=== PATIENT | female | born 1945 | race Caucasian/White ===

== ENCOUNTER → 2016-04-21 | Outpatient (CLI) | payer BC ==
[~2016-04-21] MED LIST: CALC-422 PO; CALCIUM MAGNESIUM PO; METO1TAB66 PO; MULT-190 PO; MULT-614 PO; PANT40TA PO; PROBCAP PO; PSYL55.43 PO; TAMO20TA47 PO; VITA400C15 PO
[2016-04-21 13:51] VITALS: BP 157/73; PULSE 64; TEMP 36.6; O2SAT 96
--- NOTE | 2016-04-21 16:13 | Radiation Oncology Follow-Up ---
Radiation Oncology Follow-Up Date of Visit Apr 21, 2016. Reason For Visit Ms. Whitehead is being seen today as part of her regular scheduled follow-up visit. Radiation Completion Date APB 08/23/15 Endometrial HDRs x 3 - 07/20/12 History of Present Illness Ms Whitehead is doing well in regards to the prior history of endometrial carcinoma. She saw Dr. Ziegler in June. She's had no vaginal discharge or irritation. No change in urination. No change in bowel habits. Follow-up examination and Pap She had a screening mammogram 04/15/2015. She was found to have a mass at the 2 o'clock position of left breast and ultrasound guided biopsy was recommended. There was nodular asymmetry in the right breast with no sonographic Corlett. She then underwent the ultrasound guided biopsy. The first 2015 which revealed DCIS. This was extensive with sclerosing adenosis. Specimen 1 [id number]. She then was sent for an MRI of the breasts. This showed enhancing 7 mm mass in the left upper outer quadrant, consistent with biopsy proven malignancy. There was an irregular enhancing 5 mm mass in the right breast at 12 o'clock position posteriorly. The mass is intermediate for malignancy and second look ultrasound was recommended for further evaluation. If an abnormality is seen and ultrasound guided core needle biopsy was recommended. On 06/12/2015 she had the second look ultrasound this was given BI-RADS 4 suspicious. On 06/26/2015 she had an MRI guided biopsy of the right breast which showed atypical ductal hyperplasia. Specimen 1 [id number]. She was referred to Dr. Bryant and underwent a right breast needle localization biopsy and left breast lumpectomy and sentinel lymph node biopsy on 07/15/2015. The specimens revealed atypical ductal hyperplasia on the right. The left breast showed DCIS. The lesion was 0.8 cm in greatest dimension. There was comedo necrosis. Margins were negative with the nearest margin 0.2 cm posterior margin on main specimen. Estrogen receptor was positive and progesterone receptor was positive. Her AJCC pathologic staging was pTis pN0. She was referred to our office to discuss radiation therapy She underwent a CT simulation was found to be good candidate for accelerated partial breast treatment. The patient returns for one-month follow-up visit on 08/23/2015. She's been doing well over the past month. She has noticed no changes to her breasts. She is noted no masses or tenderness and no change of the axilla. She's had no swelling of her arm. She is seeing Dr. Acosta and was prescribed tamoxifen. She did develop hot flashes. She did see him last week regards to the hot flashes and he recommended that she take vitamin E 400 international units daily. She is picked up the medication and will be starting to take this regularly. She stated that the bottle recommended that 400 international units be taken twice daily. I discussed with her that she should follow the recommendation of Dr. Acosta. Interim History This patient was last seen on 10/02/2015. Since that time she has continued on her tamoxifen therapy daily. She has noted some hair thinning and decrease in vision with worsening of her cataracts. She has spoken to Dr. Acosta about this when she saw him 2 weeks ago. The decision was made to continue with the tamoxifen therapy. Patient underwent a unilateral right digital diagnostic mammogram [facility] with CAD and targeted right breast ultrasound on . This showed loosely grouped punctate microcalcifications in the right upper outer quadrant that were present and unchanged since 2011. The plan is to continue close follow-up of the right breast in continued follow-up of the treated left breast. Patient continues to be followed by Dr. 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 She was last seen by him on 01/11/2016. She is scheduled to see Dr. Shah on 07/23/2016. The patient notes no complaint of left breast tenderness or soreness or chest wall tenderness or soreness. She has no other complaints related to her course of radiation. Allergies Coded Allergies: Penicillins (Unverified Allergy, Unknown, RASH AND ITCHING, 07/15/15) Home Medications Scheduled Calcium Carbonate-Vitamin D (Calcium/Vitamin D3), 1 TAB PO QAM Metoprolol Succinate (Toprol Xl), 50 MG PO QAM Multiple Vitamins W/ Minerals (Centrum Silver Ultra Wome), 1 TAB PO QAM Ocuvite Preservision (Ocuvite Preservision), 1 TAB PO QAM Pantoprazole Sodium (Protonix), 40 MG PO DAILY Probiotic Product (diaDexus), 1 CAP PO QAM Psyllium (Metamucil Powder), 1 PACK PO DAILY Tamoxifen (Nolvadex), 20 MG PO DAILY Tocopheryl Acet,Dl-Alpha (Vitamin E), 400 INTER.UNIT PO DAILY [calcium magnesium], 1 TAB PO DAILY Review of Systems Gastrointestinal: Symptoms: WNL GI Comments: Chronic mild episodes of intestinal cramping and loose BMs; Oral: Symptoms: No Problems Respiratory: Symptoms: WNL Urinary: Symptoms: WNL Skin: Symptoms: No Problems Breast: Right Upper Arm Measurement: 26.0 Right Mid Arm Measurement: 23.5 Right Wrist Measurement: 15.0 Left Upper Arm Measurement: 27.0 Left Mid Arm Measurement: 23.0 Left Wrist Measurement: 14.5 Arm Dominence: Right Physical Exam Vital Signs Date Time Temp Pulse Resp B/P Pulse Ox O2 Delivery O2 Flow Rate FiO2 04/21/16 13:51 36.6 64 12 157/73 96 Fatigue: None General Appearance: WD/WN, no apparent distress Eyes: normal inspection ENT: normal ENT inspection, pharynx normal Neck: supple, no adenopathy Respiratory/Chest: chest non-tender, lungs clear, normal breath sounds Breast: Examination of the treated left breast reveals no skin thickening. There is no persistent pigmentation change. There are no left breast masses, induration or thickening. There is no left axillary adenopathy. The untreated right breast remains unremarkable with no skin changes, right breast masses or axillary adenopathy. There is a well-healed incision in the upper central portion of the right breast. Cardiovascular: regular rate, rhythm, no murmur Abdomen: non tender, soft, no organomegaly Extremities: normal range of motion, + pertinent finding (there is no evidence of arm edema to measurement.) Neurologic/Psychiatric: senior analysis specialist II-XII nml as tested, no motor/sensory deficits, normal mood/affect, oriented x 3 Skin: normal color, warm/dry Lymphatic: no adenopathy Laboratory Studies UNILATERAL RIGHT DIGITAL DIAGNOSTIC MAMMOGRAM TOMOSYNTHESIS WITH CAD AND TARGETED RIGHT ULTRASOUND: 01/17/2016 CLINICAL HISTORY: 70-year-old woman with a personal history of left breast cancer status post lumpectomy and radiation, as well as right breast atypia diagnosed at an MRI guided biopsy performed on 06/26/2015. She is status post surgical excisional biopsy in the right breast as well. A bilateral breast MRI was performed to ensure stability post MRI guided biopsy given that the finding of atypia was mammographically and sonographically occult. This follow-up MRI demonstrates a 3.5 mm enhancing focus/mass in the 12:00 anterior/subareolar right breast that appears more prominent compared to the prior MRI. The patient was called back for additional right mammography and targeted ultrasound to evaluate for this 3.5 mm focus/mass. Comparison is made to exams dated: 06/26/2015 mammogram, 06/12/2015 ultrasound, mammogram, and 04/03/2015 mammogram - [facility]. FINDINGS: Right CC and MLO to the digital and tomosynthesis images, spot magnification right CC and ML views were obtained. The tissue of the right breast is heterogeneously dense, which may obscure small masses. Current study was also evaluated with a Computer Aided Detection (CAD) system. There is expected architectural distortion and a surgical clip in the 12:00 middle to posterior right breast, at the site of prior surgical excisional biopsy for the atypia found at MRI guided biopsy. There is no obvious new mass or unexpected architectural distortion in the right breast. However, clustered microcalcifications were seen in the right upper outer quadrant for which additional spot magnification views were obtained. With spot magnification, there are loosely grouped punctate microcalcifications extending over 2.8 x 1.7 cm in the right upper outer quadrant. When comparing to prior available for field mammograms, these appear to have been present dating back to at least 2011 , but given the slight increased conspicuity, short interval follow-up spot magnification views are recommended to ensure stability in 6 months. Real-time high-resolution ultrasound was performed in the 12:00, retroareolar and 6:00 axes of the right breast. Mild duct ectasia is seen in the periareolar and retroareolar breast. However, no discrete solid or cystic 3.5 mm mass is seen to correlate with the MRI finding. IMPRESSION: ACR-BI-RADS CATEGORY 3: PROBABLY BENIGN, TARGETED ULTRASOUND ACR-BI- RADS CATEGORY 3: PROBABLY BENIGN 1. There are loosely grouped punctate microcalcifications in the right upper outer quadrant that were likely present and unchanged dating back to 2011. Although they are probably benign, given the slight increased conspicuity, a short interval follow-up spot magnification views are recommended in 6 months. 2. Mammograms including tomosynthesis images and targeted ultrasound failed to demonstrate a correlate for the 3.5 mm enhancing focus/mass seen on recent bilateral breast MRI that appeared slightly more prominent compared to the prior breast MRI, although the differences are less than a millimeter and this may be secondary to technique and image slice thickness. Given the circumscribed borders this may be benign. However, a short interval follow-up breast MRI is recommended to ensure stability in 6 months, given that this focus is mammogram and ultrasound occult. These results and recommendations were discussed with the patient at the time of the exam. She tentatively scheduled the follow-up appointments prior to leaving our department. Approximately 10% of breast cancers are not detected with mammography. A negative mammographic report should not delay biopsy if a clinically suggestive mass is present. Adrienne Beltran M.D. ay/:01/17/2016 14:41:53 Assessment & Plan Ms. Whitehead continues to do well following the completion of her accelerated partial breast irradiation to the left breast cavity. Prior mammogram from December 2015 was unremarkable. She is scheduled for a bilateral mammogram on . She is scheduled for an MRI of the right breast on 07/20/2016. Patient continues to be followed by Dr. Ziegler in [place] and Dr. Shah, thermoforming machine operator at [facility] on a semiannual basis. She continues to do well following HDR brachytherapy to the vaginal vault. She will continue to be followed by Dr. Acosta for her ongoing tamoxifen therapy. We will continue to follow her and will see her in one year's time. Total Time In Follow-Up I spent 15 minutes in discussion and examination of the of the patient, 10 minutes reviewing her chart and scans and in preparation of this document. Copy To Melo Acosta D.O.; Tia Shah M.D.(LEAD NITRATE PROCESSOR/OB); Campos Ziegler M.D.; Venu Perry M.D.
== END | disposition home or self-care (01) ==
LOC: C.ONC 13:26
PROVIDERS: ATTEND Radiology Radiation Oncology
DX: Z08 Encounter for follow-up examination after completed treatment for malignant neoplasm (principal); Z92.3 Personal history of irradiation; Z85.42 Personal history of malignant neoplasm of other parts of uterus

== ENCOUNTER → 2016-07-20 | Outpatient (CLI) | payer BC ==
[~2016-07-20] MED LIST changes: +METO-452 PO; -METO1TAB66 PO; -TAMO20TA47 PO; +TAMO20TA9 PO
--- NOTE | 2016-07-22 14:36 | MAMMOGRAPHY REPORT ---
BILATERAL DIGITAL DIAGNOSTIC MAMMOGRAM TOMOSYNTHESIS WITH CAD AND TARGETED RIGHT ULTRASOUND: 07/21/19 CLINICAL HISTORY: 71-year-old woman with history of left breast cancer and right breast atypia prese nts for mammographic follow-up in both breasts as well as targeted second look ultrasound for an MRI finding of an enhancing irregular 4 mm focus in the 12:00 anterior/subareolar right breast. TECHNIQUE: Bilateral CC and MLO 2-D digital and tomosynthesis, spot magnification CC and ML views o f each breast were obtained. Current study was also evaluated with a Computer Aided Detection (CAD) system. COMPARISON: Comparison is made to exams dated: 07/20/2016 breast MRI, 01/17/2016 ultrasound, 016 mammogram, 01/06/2016 breast MRI, 12/16/2015 ultrasound, and 07/15/[address] [facility]. BREAST COMPOSITION: The tissue of both breasts is heterogeneously dense, which may obscure small ma sses. FINDINGS: There is expected architectural distortion with associated surgical clips in the upper out er posterior aspect of the right breast. Grouped punctate microcalcifications are again seen in the upper outer middle one third of the right breast. When comparing to the spot magnification views w as performed on 01/17/2016, the microcalcifications do not appear significantly increased, and were likely present dating back to 2011, therefore likely benign. No obvious mass is identified to corre late with the 4.1 mm irregular enhancing focus in the 12:00 anterior/subareolar right breast on rece nt MRI. No other obvious mass, unexpected architectural distortion or new calcifications are seen i n the right breast. There is expected architectural distortion with associated surgical clips in the upper outer posteri or left breast. There are stable punctate microcalcifications in the left breast. No new suspiciou s mass, focal area of architectural distortion or new suspicious microcalcifications are identified. Targeted ultrasound was performed in the right breast with particular attention to the 12:00, retroa reolar and 6:00 axes to evaluate for the 4.1 mm irregular enhancing focus seen on recent MRI, that i s increased in prominence compared to prior MRIs. Aside from mild duct ectasia in the subareolar ri ght breast, no discrete solid or cystic mass is seen. Therefore, MRI guided biopsy is recommended. IMPRESSION: ACR BI-RADS CATEGORY 4B: INTERMEDIATE SUSPICION FOR MALIGNANCY, TARGETED ULTRASOUND ACR BI-RADS CATEGORY 4B: INTERMEDIATE SUSPICION FOR MALIGNANCY 1. Right mammogram and targeted ultrasound failed to demonstrate a correlate for the suspicious irr egular enhancing 4.1 mm focus in the 12:00 anterior/subareolar breast seen on recent MRI, that is in creasingly prominent comparing to prior MRIs. This remains suspicious and definitive characterizati on with a right breast MRI guided biopsy is recommended. 2. Overall stable mammographic appearance of the breasts including grouped punctate microcalcificat ions in the right upper outer quadrant. Pending pathology results from the MRI guided biopsy, would recommend another six-month follow-up of the right breast microcalcifications to ensure longer stab ility. These results and recommendations were discussed with the patient at the time of the exam. She will call to schedule her MRI guided biopsy after undergoing cataract surgery, which is scheduled for e near future. Approximately 10% of breast cancers are not detected with mammography. A negative mammographic repor t should not delay biopsy if a clinically suggestive mass is present. Adrienne Beltran M.D. ay/:07/21/2016 22:05:47 Radar Systems Engineer: Jaja Pearson RT(R)(M), [facility] letter sent: Abnormal 4/5 BI-RADS Code: ACR BI-RADS Category 4B: Intermediate Suspicion For Malignancy Ultrasound BI-RADS: AC R BI-RADS Category 4B: Intermediate Suspicion For Malignancy
== END | disposition home or self-care (01) ==
LOC: C.MAMM 09:33
PROVIDERS: ATTEND Physician Assistant Medical
DX: Z09 Encounter for follow-up examination after completed treatment for conditions other than malignant neoplasm (principal); R92.8 Other abnormal and inconclusive findings on diagnostic imaging of breast; R92.0 Mammographic microcalcification found on diagnostic imaging of breast

== ENCOUNTER → 2016-07-20 | Outpatient (CLI) | payer BC ==
[2016-07-16 10:40] LABS: BLOOD UREA NITROGEN 14 mg/dl (7-18); CREATININE 0.89 mg/dl (0.60-1.20)
[~2016-07-20] MED LIST changes: +GADAVIST IV PRN
--- NOTE | 2016-07-22 14:36 | MAMMOGRAPHY REPORT ---
BREAST MRI OF BOTH BREASTS : 07/20/2016 CLINICAL HISTORY: 71-year-old woman with a history of left breast cancer right breast atypia. She i s status post lumpectomy and radiation therapy on the left. She presents for MRI to follow-up enhan cing foci within the right breast and also assess both breasts for continued surveillance. COMPARISON: Comparison is made to exams dated: 01/17/2016 ultrasound, 01/17/2016 mammogram, 016 breast MRI, 12/16/2015 ultrasound, 12/16/2015 mammogram, and 07/15/2015 localization - [facility]. TECHNIQUE: Using a 1.5 Maritza magnet and dedicated breast coil, multisequence axial images were obtai ruddy through the breasts. After uneventful IV administration of 6.5 mL of Gadavist, dynamic multipha se contrast-enhanced axial images, and sagittal postcontrast were obtained. Temporal subtraction ax ial images and 3-D MIP images are provided. Everything was then reviewed on a 3-D workstation, [employer]. FINDINGS: Right breast: There is no significant background parenchymal enhancement of the right breast. There is expected architectural distortion in the 6:00 anterior/retroareolar right breast, at the site of prior MRI guided biopsy and a surgical excisional biopsy in which atypia identified. Again seen is an enhancing focus in the 12:00 anterior/subareolar right breast, located 17 mm posterior to the ni pple (axial image 70/116). This focus is more prominent and irregular in appearance comparing to th e 2 prior breast MRIs. Current measurements are 3.2 x 4.1 x 3.3 mm. The largest measurement on the most recent MRI was 3.5 mm. The associated kinetics are peripheral plateau and central washout. G iven the interval change in size and suspicious kinetics, this is suspicious for malignancy and furt her evaluation with targeted second look ultrasound is again recommended. If second look ultrasound is on yielding, MRI guided biopsy is recommended. Another smaller 3mm focus of enhancement in the approximate 8:00 anterior right breast is decreased in size and enhancement and therefore considered benign. No other new suspicious enhancing mass, non-mass enhancement or suspicious kinetics are id entified in the right breast. There is no focal skin thickening or nipple retraction. No right axi llary lymphadenopathy. Left breast: There is no significant background parenchymal enhancement. There is expected architec tural distortion in the 2:00 posterior left breast, extending to the posterior retroareolar left matthew ast, at the site of prior lumpectomy. No new suspicious enhancing mass, non-mass enhancement or kim picious kinetics are seen within the left breast. There is no focal skin thickening or nipple retra ction. No left axillary lymphadenopathy. IMPRESSION: ACR BI-RADS CATEGORY 4B: INTERMEDIATE SUSPICION FOR MALIGNANCY 1. A 4.1mm enhancing focus/mass in the 12:00 anterior/subareolar right breast is minimally increase d in size and is more irregular in shape comparing to the 2 prior breast MRIs. It also demonstrates suspicious kinetics. Given the interval change this remains suspicious and targeted second look ul trasound is recommended. If second look ultrasound is yielding, MRI guided biopsy is recommended. 2. Expected postsurgical changes within each breast. 3. No MRI evidence of malignancy within the left breast. 4. No suspicious axillary lymphadenopathy bilaterally. These MRI findings and recommendations were discussed with the patient during a concurrent diagnosti c mammogram and ultrasound on the same day. Please refer to a separate report for full detail. Adrienne Beltran M.D. ay/:07/21/2016 21:52:39 Lunch Cook: counting machine operator, [facility] letter sent: Abnormal 4/5 BI-RADS Code: ACR BI-RADS Category 4B: Intermediate Suspicion For Malignancy
== END | disposition home or self-care (01) ==
LOC: C.MRI 08:02
PROVIDERS: ATTEND Physician Assistant Medical
DX: D05.12 Intraductal carcinoma in situ of left breast (principal); R92.8 Other abnormal and inconclusive findings on diagnostic imaging of breast; Z09 Encounter for follow-up examination after completed treatment for conditions other than malignant neoplasm; R92.0 Mammographic microcalcification found on diagnostic imaging of breast

== ENCOUNTER → 2016-09-16 | Outpatient (CLI) | payer BC ==
[~2016-09-16] MED LIST changes: +LIDO/EPINEPHRINE/SOD BICARB 20 ML VIAL INFIL ONE; +XYLOCAINE 1%/SOD BICARB 20 ML VIAL INFIL ONE
[2016-09-16 10:53] LABS: ISTAT CREATININE 0.8 mg/dl (0.6-1.3); ISTAT HEMOGLOBIN 14.6 g/dl (12.0-16.0); ISTAT IONIZED CALCIUM 1.19 mmol/l (1.12-1.32)
--- NOTE | 2016-09-16 12:09 | Discharge Instructions ---
Discharge Instructions Procedure Procedure Date: Sep 16, 2016. Reason for visit: Right Enhancing Focus. Discharge Discharge Date: Sep 16, 2016. Discharge Diagnosis: post right breast MRI guided biopsy Instructions Activity Recommendations: Additional Limitations (see below) Return to School/Work: no limitations Recommended Home Diet: No Limitations Provider Instructions: ACTIVITY RECOMMENDATIONS: * No lifting, pushing, pulling or exercising the affected side for three days. RETURN TO SCHOOL/WORK: * You may return to work/school after the procedure, but do not perform any strenuous activities for 24 to 48 hours. MEDICATIONS: * Tylenol (two 325 mg) every four to six hours if needed for mild pain (if not allergic to Tylenol). DIET: * Resume previous diet. SPECIAL CARE INSTRUCTIONS: * Keep biopsy site dry for 24 hours. May shower after 24 hours, but do not soak (bathe) incision. * May remove Tegaderm (plastic patch) tomorrow AFTER showering. * Leave the steri-strips on for one week. Allow the steri-strips to fall off by themselves. If not off after one week, you may remove them. You may place a Bandaid crosswise over the strips, if desired. * Apply ice 10 minutes on and 10 minutes off as needed. * Wear a bra at bedtime to sleep more comfortably for 2-3 days. * Your referring physician should have the results after approximately 5 to 7 business days. * Call for unusual bleeding, fever, drainage, etc or if you have any questions call [phone] during normal business hours or after hours call Dr Beltran, . FOLLOW UP VISIT: Follow-up with Referring Physician as scheduled. Allergies Coded Allergies: Penicillins (Verified Allergy, Intermediate, RASH AND ITCHING, 07/20/16) Rickie De Santiago Recommendations: Call your doctor if: * Temperature above 101 degrees * Pain not relieved by pain medicine ordered * There is increased drainage or redness from any incision * You have any unanswered questions or concerns. Your Doctors Instructions noted above were prepared by provider Adrienne Beltran. Patient Signature Section: Patient Instructions Signature Page Keily Whitehead Patient (or Guardian) Signature/Date: I have read and understand the instructions given to me by my caregivers. Caregiver/RN/Doctor Signature/Date: The above-named patient and/or guardian has received patient instructions on this date. + Original Patient Signature Page (only) stays with chart. Please make copy for patient.
--- NOTE | 2016-09-16 14:47 | MAMMOGRAPHY REPORT ---
MRI BIOPSY RIGHT BREAST: 09/16/2016 CLINICAL HISTORY: Enlarging 4.1 mm enhancing focus in the 12:00 anterior/subareolar right breast. Jack guillaume presents for MRI guided biopsy. Personal history of breast cancer. COMPARISON: Comparison is made to exams dated: 07/20/2016 ultrasound, 07/20/2016 mammogram, 07/20/2016 breast MRI, 01/17/2016 ultrasound, 01/17/2016 mammogram, and 01/06/2016 breast MRI - [facility]. PATIENT CONSENT: After explaining the risks, benefits and alternatives of the procedure to the patien t, informed consent was obtained both verbally and in writing. Specific risks include: Bleeding, inf ection, puncture of adjacent structure, medication reaction, metal allergy, pain breast or lung injur y, sampling error, nontarget biopsy. PROCEDURE DESCRIPTION: A timeout was performed prior to starting the procedure, and the right breast was agreed as the site for biopsy. The patient was placed prone on a 1.5 Maritza MRI scanner. The lateral aspect of the right breast was cleansed with ChloraPrep. The right breast was positioned in a dedicated breast coil and MRI guidanc e grid device. After localizing sequences were obtained, pre-and postcontrast axial sequences were obtained, using 6 .5 mL of Gadavist without immediate reaction. The postcontrast images confirm the persistence of the 4.1 mm enhancing focus in the anterior 12:00/subareolar right breast. Using these images, targeting was performed using Alphion software. The skin was re-prepped with Betadine through the grid, and after local anesthesia was achieved, an i ntroducer sheath and localizing air press operator were placed into the site site via a lateral approach. The location of the air press operator sheath was confirmed with additional axial images. Then 7 samples were obta ined with a [employer] 9-gauge vacuum-assisted biopsy device. Post biopsy images demonstrate good sampling of the lesion, therefore, through the introducer sheath, a metallic biopsy marker was placed at the site. The patient tolerated the procedure well and there was no immediate complication. Hemostasis was ach ieved after several minutes of manual compression. The samples were sent to pathology in an appropri ately labeled container. Postprocedure right CC and LM to the distal and tomosynthesis images were obtained. There is a new m etallic biopsy marker in the anterior subareolar right breast, at the site of the biopsied enhancing focus seen on prior MRI. No significant post biopsy hematoma is seen. IMPRESSION: MRI BIOPSY Status post MRI guided biopsy of a 4.1 mm enhancing focus/mass in the anterior subareolar right breas t, with biopsy marker placed at the site. If pathology results are benign, would recommend repeat right diagnostic mammograms including spot ma gnification views to ensure longer stability of right breast microcalcifications. The patient will receive notification of the biopsy results from her referring physician. Adrienne Beltran M.D. ay/:09/16/2016 13:37:11 Hvac/R Instructor: pharmaceutical physician, [facility]
--- NOTE | 2016-09-16 14:49 | MAMMOGRAPHY REPORT ---
UNILATERAL RIGHT DIGITAL DIAGNOSTIC MAMMOGRAM TOMOSYNTHESIS: 09/16/2016 CLINICAL HISTORY: Status post right breast MRI guided biopsy of a 4.1 mm enhancing focus in the 12:00 anterior subareolar right breast. Please refer to the report from right breast MRI guided biopsy performed at the same time for full de tail. IMPRESSION: POST PROCEDURE IMAGING FOR MARKER PLACEMENT Please refer to the report from right breast MRI guided biopsy performed at the same time for full de tail. Approximately 10% of breast cancers are not detected with mammography. A negative mammographic report should not delay biopsy if a clinically suggestive mass is present. Adrienne Beltran M.D. ay/:09/16/2016 13:29:47 Board Design Engineer: Freddie GONZALEZ(Gualberto)(M), [facility] BI-RADS Code: Post Procedure Imaging For Marker Placement
== END | disposition home or self-care (01) ==
LOC: C.MRI 10:04
PROVIDERS: ATTEND Physician Assistant Medical
DX: R92.8 Other abnormal and inconclusive findings on diagnostic imaging of breast (principal); R92.0 Mammographic microcalcification found on diagnostic imaging of breast; D24.1 Benign neoplasm of right breast

== ENCOUNTER → 2017-03-15 | Outpatient (CLI) | payer BC ==
[~2017-03-15] MED LIST changes: -GADAVIST IV PRN; -LIDO/EPINEPHRINE/SOD BICARB 20 ML VIAL INFIL ONE; -XYLOCAINE 1%/SOD BICARB 20 ML VIAL INFIL ONE
--- NOTE | 2017-03-16 07:55 | MAMMOGRAPHY REPORT ---
UNILATERAL RIGHT DIGITAL DIAGNOSTIC MAMMOGRAM TOMOSYNTHESIS WITH CAD AND TARGETED RIGHT ULTRASOUND: 1 05/16/2016 CLINICAL HISTORY: 71-year-old woman with a personal history of left breast cancer and right breast at [facility] and papilloma presents for follow-up in the right breast to reassess probably benign punctate mi crocalcifications in the lateral breast. Most recently she underwent an MRI guided biopsy of a small enhancing focus in the subareolar right breast which yielded a benign papilloma. TECHNIQUE: Right breast CC and MLO 2-D and tomosynthesis images, spot magnification right CC and ML views were obtained. Current study was also evaluated with a Computer Aided Detection (CAD) system. COMPARISON: Comparison is made to exams dated: 09/16/2016 mammogram, 09/16/2016 MRI biopsy, 07/20/2016 mammogram, 01/17/2016 mammogram, 06/26/2015 mammogram, and 04/15/2015 mammogram - [facility]. BREAST COMPOSITION: The tissue of the right breast is heterogeneously dense, which may obscure small masses. FINDINGS: There is a stable surgical clip in expected architectural distortion in the 12:00 middle to posterior right breast, at the site of prior surgical excision in an area of biopsy-proven atypia. A stable dumbbell shaped biopsy marker clip is seen in the anterior subareolar right breast, 16 mm de ep to the nipple, denoting the area of biopsy-proven papilloma diagnosed at MRI biopsy. The tomosynt hesis images demonstrate a possible 4 mm low-density mass in the lateral posterior right breast (CC t omosynthesis slice 16/68), thought to project inferiorly based on the tomosynthesis localizer bar. T here is mild expected architectural distortion at the site of MRI biopsy in the anterior breast. No other obvious mass, unexpected area of distortion or new cluster of microcalcifications are identifie d. Spot magnification views redemonstrate a loose grouping of punctate microcalcifications in the upper outer middle to anterior right breast measuring approximately 11 mm in maximum dimension, which appea rs similar to the spot magnification views obtained 07/20/2016, 01/17/2016 and also likely stable com paring back to full Field mammograms dating back to 2013. Given slight increased conspicuity, anothe r short interval follow-up right diagnostic mammogram including spot magnification views is recommend ed in 6 months. Targeted ultrasound was performed in the lateral right breast to assess for the possible low-density 4 mm mass seen on the tomosynthesis images. In the 8:00 axis, 4 cm from the nipple, there is an isoe choic to hypoechoic lobulated mass measuring 2.2 x 2.1 x 4.3 mm. It is unclear if this correlates wi th the mammographic finding. No other discrete solid or cystic mass is seen throughout the lateral r ight breast on ultrasound. IMPRESSION: ACR-BI-RADS CATEGORY 3: PROBABLY BENIGN, TARGETED ULTRASOUND ACR-BI-RADS CATEGORY 3: PRO BABLY BENIGN 1. There are stable postsurgical and postbiopsy changes in the right breast. A possible 4 mm nodula r asymmetry versus mass is newly visualized in the lateral posterior right breast on the tomosynthesi s images, with possible sonographic correlate in the 8:00 right breast, 4 cm from the nipple on ultra sound. The patient is due for a breast MRI within the next month to ensure stability after biopsy of the papilloma in the anterior right breast. Could also a particular attention to the lateral right breast in the 8:00 axis to assess for any suspicious enhancing mass in the area of the mammographic a nd sonographic findings and if there are suspicious MRI features, a core needle biopsy may be needed. Otherwise , a follow this finding with serial follow-up imaging. 2. The patient is due for bilateral diagnostic tomosynthesis mammography in approximately July 2017. These results and recommendations were discussed with the patient at the time of the exam. She tenta tively scheduled a bilateral breast MRI and follow-up diagnostic appointment prior [facility]. Approximately 10% of breast cancers are not detected with mammography. A negative mammographic report should not delay biopsy if a clinically suggestive mass is present. Adrienne Beltran M.D. ay/:03/15/2017 15:30:35 Inspector Rough Castings: Freddie GONZALEZ(R)(Matthias), [facility] letter sent: Follow Up Recommended 3 BI-RADS Code: ACR-BI-RADS Category 3: Probably Benign Ultrasound BI-RADS: ACR-BI-RADS Category 3: Pr obably Benign
== END | disposition home or self-care (01) ==
LOC: C.MAMM 08:33
PROVIDERS: ATTEND Physician Assistant Medical
DX: R92.8 Other abnormal and inconclusive findings on diagnostic imaging of breast (principal); Z85.3 Personal history of malignant neoplasm of breast

== ENCOUNTER → 2017-04-09 | Outpatient (CLI) | payer BC ==
[2017-04-09 17:00] LABS: BLOOD UREA NITROGEN 14 mg/dl (7-18); CREATININE 0.85 mg/dl (0.60-1.20)
== END | disposition home or self-care (01) ==
LOC: C.LABBC 13:25
PROVIDERS: ATTEND Physician Assistant Medical
DX: Z01.812 Encounter for preprocedural laboratory examination (principal)

== ENCOUNTER → 2017-04-19 | Outpatient (CLI) | payer BC ==
[~2017-04-19] MED LIST changes: +GADAVIST IV PRN
--- NOTE | 2017-04-20 14:39 | MAMMOGRAPHY REPORT ---
BREAST MRI OF BOTH BREASTS : 04/19/2017 CLINICAL HISTORY: 72-year-old woman with a personal history of left breast carcinoma status post santosh st conservation treatment, and right breast atypia status post surgical excision in the 12:00 breast. Patient had a biopsy-proven papilloma without evidence of atypia in the anterior subareolar right b reast from prior MRI guided biopsy, denoted by a dumbbell shaped biopsy marker clip which remains in place. A recent diagnostic right mammogram demonstrated a possible 4 mm nodular asymmetry in the lat eral, posterior right breast on the CC view and particular attention should be paid to this area for any suspicious enhancing masses. COMPARISON: Comparison is made to exams dated: 09/16/2016 mammogram, 03/15/2017 mammogram, 03/15/2017 ultrasound, 09/16/2016 MRI biopsy, 07/20/2016 ultrasound, and 07/20/2016 mammogram, prior breast MRIs d ated 06/06/2015, 01/06/2016, 07/20/2016- [facility]. TECHNIQUE: Using a 1.5 Maritza magnet and dedicated breast coil, multisequence axial images were obtain ed through the breasts. After uneventful IV administration of 6.5 mL of Gadavist, dynamic multiphase contrast-enhanced axial images, and sagittal postcontrast were obtained. Temporal subtraction axial images and 3-D MIP images are provided. Everything was then reviewed on a 3-D workstation, [employer]. FINDINGS: Right breast: There is minimal background parenchymal enhancement of the right breast. Again seen is an ovoid, re-0.4 mm enhancing focus in the 8:00 anterior right breast (axial page 66/116), that has not significantly changed on prior breast MRIs dating back to at least 06/06/2015, at which time it w as measured at 3.7 mm. Given approximately 2 years of stability this is most likely benign. There i s susceptibility artifact in the 12:00 anterior/subareolar right breast denoting the site of previous biopsy proven papilloma without atypia. Other areas of susceptibility artifact are seen in the 12:0 0 posterior right breast, denoting a surgical excisional biopsy for biopsy proven atypia. No new kim picious enhancing masses, non-mass enhancement or unexpected architectural distortion are seen in the right breast. In particular, there is no cyst or enhancing mass in the lateral right breast to expl ain the 4 mm possible mass seen on recent tomosynthesis mammogram. Therefore, this finding is consid ered benign and no further workup is needed at this time. No unexpected skin thickening or nipple re traction of the right breast. No suspicious right axillary lymphadenopathy. Left breast: There is minimal background parenchymal enhancement of the left breast. There is suscep tibility artifact and expected architectural distortion in the upper outer posterior left breast, at the site of prior lumpectomy. No new suspicious enhancing masses, non-mass enhancement or unexpected architectural distortion are identified. No focal skin thickening or nipple retraction. No suspici ous left axillary lymphadenopathy. IMPRESSION: ACR-BI-RADS CATEGORY 3: PROBABLY BENIGN 1. No new suspicious enhancing mass or cyst identified in the lateral right breast to explain the po ssible 4 mm nodular asymmetry versus mass seen on recent tomosynthesis mammogram in the CC projection . Therefore, this finding is considered benign and no further workup is needed at this time. 2. A 3.5 mm ovoid enhancing focus in the 8:00 anterior right breast has been stable on prior MRIs fo r approximately 2 years and is most likely benign. It is unclear if this could correlate with a 4 mm microlobulated isoechoic mass recently identified in the 8:00 left breast on targeted ultrasound. Ne vertheless, a short interval follow-up right breast ultrasound is recommended to ensure stability of this sonographic finding in 6 months. Also at that time, annual bilateral tomosynthesis mammography is due. 3. Expected posttreatment changes in the left breast, without MRI evidence of malignancy. The patient will receive written notification of the results. Adrienne Beltran M.D. ay/:04/19/2017 21:45:02 Screw Down: tobacco stripper hand, [facility] letter sent: Follow Up Recommended 3 BI-RADS Code: ACR-BI-RADS Category 3: Probably Benign
== END | disposition home or self-care (01) ==
LOC: C.MRI 08:34
PROVIDERS: ATTEND Physician Assistant Medical
DX: Z85.3 Personal history of malignant neoplasm of breast (principal)

== ENCOUNTER → 2017-04-27 | Outpatient (CLI) | payer BC ==
[~2017-04-27] MED LIST changes: -GADAVIST IV PRN
[2017-04-27 14:20] VITALS: BP 194/76; PULSE 68; TEMP 36.6; O2SAT 98
--- NOTE | 2017-04-27 16:30 | Radiation Oncology Follow-Up ---
Radiation Oncology Follow-Up Date of Visit Apr 27, 2017. Reason For Visit Annual follow-up Radiation Completion Date APBI to left breast 08/23/15;endometrial HDR 07/20/12 Diagnosis (1) Ductal carcinoma in situ (DCIS) of breast Status: Resolved Onset Date: 04/29/2015 Stage: 0 Permanent Comment: Abnormal left breast mammogram Status post biopsy 04/29/2015 revealing DCIS ER positive and NJ positive Status post MRI of the breast 06/26/2015 Abnormal finding of the right breast Status post needle localization biopsy of the right breast and left breast lumpectomy with sentinel lymph node biopsy 07/15/2015 Right breast atypical ductal hyperplasia Left breast DCIS Stage pTis pN0 Status post completion of radiation therapy 08/23/2015 received 3850 cGy utilizing accelerated partial breast irradiation. Last Edited By: Ilsa Finley on Sep 02, 2015 14:50 (2) Endometrial cancer Status: Resolved Onset Date: 09/19/2012 Stage: l (B) Permanent Comment: Postmenopausal vaginal bleeding Status post endometrial biopsy revealing adenocarcinoma Status post robotic-assisted total abdominal hysterectomy, bilateral salpingo- oophorectomy with lymph node sampling. Pathologic stage [id number] Stage IB Status post completion of radiation therapy utilizing HDR treatments completed 07/20/2012 received 2100 cGy Last Edited By: Ilsa Finley on August 01, 2014 14 :50 Interim History She denies any changes to her breast that she has noted herself. She has noticed no masses or tenderness and no change of the axilla. She's had no swelling of her arm. She has undergone extensive evaluation over this past year with recheck mammography and MRIs. On 07/20/2016 she underwent right breast mammography, ultrasound, and MRI. Mammogram revealed a 4.1 mm enhancing focus at the 12:00 anterior/subareolar right breast that was minimally increased in size. It was more irregular in shape compared to the prior to MRIs. This was felt to be suspicious and a targeted second look ultrasound was recommended. If this is concerning then an MRI guided biopsy was recommended. The left breast was normal. Mammography and ultrasound of that same failed to demonstrate a correlate for the suspicious enhancing 4.1 mm focus at 12:00. Therefore the MRI guided biopsy was recommended. There were punctate microcalcifications in the upper-outer quadrant of the right breast. Was recommended that she have a 6 month follow-up mammogram. She then underwent the MRI guided biopsy on 09/16/2016. This showed an intraductal papilloma. Specimen [id number]. These findings were reviewed with her breast surgeon Dr. Bryant. He felt she did not need any further surgery. She had a right breast mammogram 09/16/2016 the same day as the MRI. She had a follow-up mammogram . Stable postsurgical and postbiopsy changes are noted. A 4 mm nodular asymmetry versus mass is noted in the visualized in the lateral posterior right breast on barry synthesis images, with possible sonographic correlate in the 8: 00 right breast, 4 cm from the nipple on ultrasound. Patient is due for a breast MRI within the next month to ensure stability after biopsy of the papilloma in the anterior right breast. Attention will be given to the lateral right breast in the 8:00 axis for any suspicious enhancing mass. If these are demonstrated on MRI a biopsy will be recommended. She then underwent the MRI on 04/19/2017. There were no suspicious enhancing mass or cystic areas identified in the lateral right breast to explain the possible 4 mm nodular asymmetry versus mass seen on a recent barry synthesis mammogram in the CC projection. Therefore this finding is considered benign and no further workup is needed at this time. A 3.5 mm ovoid enhancing focus in the 8:00 anterior right breast has been stable on prior MRIs for approximately 2 years and is most likely benign. It is unclear if this could correlate with a 4 mm microlobulated isoechoic mass recently identified in the 8:00 left breast on the targeted ultrasound. Nevertheless, a short interval follow-up right breast ultrasound is recommended to ensure stability of this sonographic finding in 6 months. Also at this time, annual bilateral barry synthesis mammogram is due. Expect posttreatment changes in the left breast, without MRI evidence of malignancy. In regards to the history of endometrial carcinoma she has been followed by Dr. Wang. She has done very well and most recently has been released from his care. Allergies Coded Allergies: Penicillins (Verified Allergy, Intermediate, RASH AND ITCHING, 07/20/16) Home Medications Scheduled Calcium Carbonate-Vitamin D (Calcium/Vitamin D3), 1 TAB PO QAM Metoprolol Succinate (Toprol Xl), 50 MG PO QAM Multiple Vitamins W/ Minerals (Centrum Silver Ultra Wome), 1 TAB PO QAM Ocuvite Preservision (Ocuvite Preservision), 1 TAB PO QAM Pantoprazole Sodium (Protonix), 40 MG PO DAILY Probiotic Product (ET Water), 1 CAP PO QAM Psyllium (Metamucil Powder), 1 PACK PO DAILY Tamoxifen (Nolvadex), 20 MG PO DAILY Tocopheryl Acet,Dl-Alpha (Vitamin E), 400 INTER.UNIT PO DAILY Review of Systems Gastrointestinal: Symptoms: WNL GI Comments: Takes metamucil; Oral: Symptoms: No Problems Respiratory: Symptoms: WNL Urinary: Symptoms: WNL Skin: Symptoms: No Problems Breast: Right Upper Arm Measurement: 26.8 Right Mid Arm Measurement: 23.3 Right Wrist Measurement: 15.0 Left Upper Arm Measurement: 26.8 Left Mid Arm Measurement: 22.3 Left Wrist Measurement: 14.3 Arm Dominence: Right Physical Exam Recheck blood pressure 178/80. History of white coat syndrome. Vital Signs Date Time Temp Pulse Resp B/P (MAP) Pulse Ox O2 Delivery O2 Flow Rate FiO2 04/27/17 14:20 36.6 68 16 194/76 98 Fatigue: None General Appearance: no apparent distress Eyes: normal inspection, EOMI ENT: normal ENT inspection, hearing grossly normal Neck: no adenopathy, thyroid normal Respiratory/Chest: lungs clear, no respiratory distress, no accessory muscle use Breast: Breast examination reveals bilateral well-healed incisions. There are no masses or tenderness and no axillary adenopathy. She has no skin retractions or nipple changes. Using the [place] score cosmesis she has a and excellent outcome. Cardiovascular: regular rate, rhythm, no gallop, no murmur Abdomen: non tender, soft, no organomegaly Extremities: no pedal edema Neurologic/Psychiatric: no motor/sensory deficits, alert, normal mood/affect Pain Management Patient Reports Pain: No Pain Location: None Patient Preferred Pain Scale: 0 - 10 Initial Pain Intensity: 0.0 Pain Management Plan She denies pain therefore requires no pain management. Laboratory Laboratory Results: not applicable Pathology Pathology Results: were reviewed Pathology Comments Reviewed in the interim history. Imaging Imaging Studies: were reviewed Imaging Comments Reviewed in the interim history. Assessment & Plan Plan: Continue with scheduled mammography and MRIs. She has bilateral digital diagnostic mammogram scheduled for 09/13/2017. She'll be due for her annual MRI after 04/19/2018. An order has been written and this will be scheduled closer to the time of the study. She'll continue regular follow-up with Dr. Acosta, Dr. Perry, and Dr. Shah FLUME MAKER. We asked her to return to our office in 1 year. She may call if she has any questions or concerns in the interim. Total Time In Follow-Up I spent 20 minutes speaking to the patient performing examination. I spent 20 minutes reviewing information and completing this note. Copy To Melo Acosta D.O.; Tia Shah M.D.(INTERNAL AFFAIRS COMMANDER/OB); Venu Perry M.D.
== END | disposition home or self-care (01) ==
LOC: C.ONC 13:47
PROVIDERS: ATTEND Physician Assistant Medical
DX: Z08 Encounter for follow-up examination after completed treatment for malignant neoplasm (principal); Z92.3 Personal history of irradiation; Z85.3 Personal history of malignant neoplasm of breast; Z85.42 Personal history of malignant neoplasm of other parts of uterus